=== PATIENT | female | born 1965 | race Caucasian/White ===

== ENCOUNTER 2024-04-10 08:13 | Observation (INO) | payer OTHER ==
--- NOTE | 2024-04-10 08:42 | ED ---
General Adult HPI - General Chief complaint: Abdominal Pain Stated complaint: Abd pain Time Seen by Provider: 04/10/24 08:32 Source: patient, RN notes reviewed Mode of arrival: ambulatory Limitations: no limitations - History of Present Illness Initial comments: Patient is a 58-year-old female present to the emergency department with left- sided flank pain. Symptoms have been present for months now. Symptoms were more intermittent however more persistent now. Patient has had some nausea vomiting, constipation and diarrhea all intermittently. No fevers. No history of similar symptoms previously. Patient has tried a friend's Flagyl prescription without improvement of symptoms. - Related Data Home Medications Medication Instructions Recorded Confirmed Levothyroxine Sodium [Synthroid] 112 mcg PO DAILY 04/10/24 04/10/24 lisinopriL [Zestril] 5 mg PO DAILY 04/10/24 04/10/24 Allergies Allergy/AdvReac Type Severity Reaction Status Date / Time No Known Allergies Allergy Verified 04/10/24 08:26 Review of Systems ROS Statement: Those systems with pertinent positive or pertinent negative responses have been documented in the HPI. ROS Other: All systems not noted in ROS Statement are negative. Constitutional: Denies: fever Eyes: Denies: eye pain ENT: Denies: ear pain Respiratory: Denies: cough Cardiovascular: Denies: chest pain Endocrine: Denies: fatigue Gastrointestinal: Reports: as per HPI, abdominal pain, nausea, vomiting, diarrhea, constipation Musculoskeletal: Denies: back pain Skin: Denies: rash Neurological: Denies: weakness Past Medical History Past Medical History: Hypertension, Thyroid Disorder Additional Past Medical History / Comment(s): kidney stones History of Any Multi-Drug Resistant Organisms: None Reported Additional Past Surgical History / Comment(s): lipoma removal Past Psychological History: No Psychological Hx Reported Smoking Status: Current every day smoker Past Alcohol Use History: Rare Past Drug Use History: Marijuana General Exam Limitations: no limitations General appearance: alert, in no apparent distress Head exam: Present: normocephalic Eye exam: Present: normal appearance Neck exam: Present: normal inspection Respiratory exam: Present: normal lung sounds bilaterally Cardiovascular Exam: Present: regular rate, normal rhythm Expanded Peripheral pulses: 2+: Posterior Tibialis (R), Posterior Tibialis (L), Dorsalis Pedis (R), Dorsalis Pedis (L) GI/Abdominal exam: Present: soft, tenderness (Mild tenderness to palpation left flank), normal bowel sounds. Absent: distended, guarding, rebound, rigid, pulsatile mass Extremities exam: Present: calf tenderness (Mild on the right, distally extremities are neurovascular intact) Back exam: Present: normal inspection Neurological exam: Present: alert Psychiatric exam: Present: normal affect, normal mood Skin exam: Present: normal color Course Vital Signs 04/10/24 04/10/24 04/10/24 08:22 08:39 09:03 Temperature 97.9 F Pulse Rate 87 90 94 Respiratory 16 18 18 Rate Blood Pressure 212/114 194/102 177/92 O2 Sat by Pulse 96 96 98 Oximetry 04/10/24 04/10/24 04/10/24 10:08 10:49 12:44 Temperature Pulse Rate 84 98 67 Respiratory 18 18 18 Rate Blood Pressure 157/94 170/87 169/97 O2 Sat by Pulse 96 96 98 Oximetry Medical Decision Making - Medical Decision Making Was pt. sent in by a medical professional or institution (, PA, SILO ERECTOR, urgent care, hospital, or retirement...) When possible be specific @ -No Did you speak to anyone other than the patient for history (EMS, parent, family, police, friend...)? What history was obtained from this source @ -No Did you review nursing and triage notes (agree or disagree)? Why? @ -I reviewed and agree with nursing and triage notes Were old charts reviewed (outside hosp., previous admission, EMS record, old EKG, old radiological studies, urgent care reports/EKG's, retirement records)? Report findings @ -No old charts were reviewed Differential Diagnosis (chest pain, altered mental status, abdominal pain women, abdominal pain men, vaginal bleeding, weakness, fever, dyspnea, syncope, headache, dizziness, GI bleed, back pain, seizure, CVA, palpatations, mental health, musculoskeletal)? @ -Differential Abdominal Pain Women: Appendicitis, Cholecystitis, diverticulosis, ischemic bowel, pancreatitis, hepatitis, UTI, gastroenteritis, AAA, incarcerated hernia, bowel obstruction, constipation, inflammatory bowel, hepatitis, peptic ulcer disease, splenic infarction, perforated viscus, vulvitis, ovarian torsion, PID, kidney stone, placenta abruption, this is not meant to be an all-inclusive list EKG interpreted by me (3pts min.). @ -As above X-rays interpreted by me (1pt min.). @ -None done CT interpreted by me (1pt min.). @ -CT scan of abdomen pelvis without acute abnormality U/S interpreted by me (1pt. min.). @ -Ultrasound without evidence of DVT What testing was considered but not performed or refused? (CT, X-rays, U/S, labs)? Why? @ -None What meds were considered but not given or refused? Why? @ -None Did you discuss the management of the patient with other professionals (professionals i.e. , PA, SILO ERECTOR, lab, RT, psych nurse, social services technician, club car attendant, teacher, health promotion officer, showcase maker)? Give summary @ -Case was discussed with Dr. Cartagena who will admit covering hospital call Was smoking cessation discussed for >3mins.? @ -No Was critical care preformed (if so, how long)? @ -No Were there social determinants of health that impacted care today? How? (Homelessness, low income, unemployed, alcoholism, drug addiction, trans portation, low edu. Level, literacy, decrease access to med. care, fpc, rehab)? @ -No Was there de-escalation of care discussed even if they declined (Discuss DNR or withdrawal of care, Hospice)? DNR status @ -No What co-morbidities impacted this encounter? (DM, HTN, Smoking, COPD, CAD, Cancer, CVA, ARF, Chemo, Hep., AIDS, mental health diagnosis, sleep apnea, morbid obesity)? @ -None Was patient admitted / discharged? Hospital course, mention meds given and route, prescriptions, significant lab abnormalities, going to OR and other pertinent info. @ -Patient presents with progressive abdominal discomfort over several months, now becoming more severe. Workup unremarkable. Patient still having significant symptoms. Patient will be admitted, admission orders written. Undiagnosed new problem with uncertain prognosis? @ -No Drug Therapy requiring intensive monitoring for toxicity (Heparin, Nitro, Insulin, Cardizem)? @ -No Were any procedures done? @ -No Diagnosis/symptom? @ -Abdominal pain Acute, or Chronic, or Acute on Chronic? @ -Acute Uncomplicated (without systemic symptoms) or Complicated (systemic symptoms)? @ -Default Side effects of treatment? @ -No Exacerbation, Progression, or Severe Exacerbation? @ -No Poses a threat to life or bodily function? How? (Chest pain, USA, CA, pneumonia, PE, COPD, DKA, ARF, appy, cholecystitis, CVA, Diverticulitis, Homicidal, Duffy icidal, threat to staff... and all critical care pts) @ -No - Lab Data Result diagrams: 04/10/24 08:45 04/10/24 08:45 Lab Results 04/10/24 04/10/24 04/10/24 Range/Units 08:45 08:45 08:45 WBC 6.5 (3.8-10.6) k/uL RBC 4.25 (3.80-5.40) m/uL Hgb 12.6 (11.4-16.0) gm/dL Hct 38.2 (34.0-46.0) % MCV 89.9 (80.0-100.0) fL MCH 29.7 (25.0-35.0) pg MCHC 33.0 (31.0-37.0) g/dL RDW 14.5 (11.5-15.5) % Plt Count 360 (150-450) k/uL MPV 9.1 Neutrophils % 63 % Lymphocytes % 27 % Monocytes % 6 % Eosinophils % 2 % Basophils % 1 % Neutrophils # 4.1 (1.3-7.7) k/uL Lymphocytes # 1.7 (1.0-4.8) k/uL Monocytes # 0.4 (0-1.0) k/uL Eosinophils # 0.1 (0-0.7) k/uL Basophils # 0.1 (0-0.2) k/uL PT 10.4 (10.0-12.5) sec INR 0.9 (<1.2) APTT 24.2 (22.0-30.0) sec Sodium (137-145) mmol/L Potassium (3.5-5.1) mmol/L Chloride (98-107) mmol/L Carbon Dioxide (22-30) mmol/L Anion Gap mmol/L BUN (7-17) mg/dL Creatinine (0.52-1.04) mg/dL Est GFR (CKD-EPI)AfAm (>60 ml/min/1.73 sqM) Est GFR (CKD-EPI)NonAf (>60 ml/min/1.73 sqM) Glucose (74-99) mg/dL Calcium (8.4-10.2) mg/dL Total Bilirubin (0.2-1.3) mg/dL AST (14-36) U/L ALT (4-34) U/L Alkaline Phosphatase (38-126) U/L Total Protein (6.3-8.2) g/dL Albumin (3.5-5.0) g/dL Amylase (30-110) U/L Lipase (23-300) U/L Urine Color Colorless Urine Appearance Clear (Clear) Urine pH 6.0 (5.0-8.0) Ur Specific Mos[place] 1.002 (1.001-1.035) Urine Protein Negative (Negative) Urine Glucose (UA) Negative (Negative) Urine Ketones Negative (Negative) Urine Blood Negative (Negative) Urine Nitrite Negative (Negative) Urine Bilirubin Negative (Negative) Urine Urobilinogen <2.0 (<2.0) mg/dL Ur Leukocyte Esterase Negative (Negative) 04/10/24 Range/Units 08:45 WBC (3.8-10.6) k/uL RBC (3.80-5.40) m/uL Hgb (11.4-16.0) gm/dL Hct (34.0-46.0) % MCV (80.0-100.0) fL MCH (25.0-35.0) pg MCHC (31.0-37.0) g/dL RDW (11.5-15.5) % Plt Count (150-450) k/uL MPV Neutrophils % % Lymphocytes % % Monocytes % % Eosinophils % % Basophils % % Neutrophils # (1.3-7.7) k/uL Lymphocytes # (1.0-4.8) k/uL Monocytes # (0-1.0) k/uL Eosinophils # (0-0.7) k/uL Basophils # (0-0.2) k/uL PT (10.0-12.5) sec INR (<1.2) APTT (22.0-30.0) sec Sodium 140 (137-145) mmol/L Potassium 4.1 (3.5-5.1) mmol/L Chloride 112 H (98-107) mmol/L Carbon Dioxide 19 L (22-30) mmol/L Anion Gap 9 mmol/L BUN 11 (7-17) mg/dL Creatinine 0.81 (0.52-1.04) mg/dL Est GFR (CKD-EPI)AfAm >90 (>60 ml/min/1.73 sqM) Est GFR (CKD-EPI)NonAf 82 (>60 ml/min/1.73 sqM) Glucose 117 H (74-99) mg/dL Calcium 9.8 (8.4-10.2) mg/dL Total Bilirubin 0.8 (0.2-1.3) mg/dL AST 20 (14-36) U/L ALT 11 (4-34) U/L Alkaline Phosphatase 68 (38-126) U/L Total Protein 7.1 (6.3-8.2) g/dL Albumin 4.5 (3.5-5.0) g/dL Amylase 66 (30-110) U/L Lipase 158 (23-300) U/L Urine Color Urine Appearance (Clear) Urine pH (5.0-8.0) Ur Specific [place] (1.001-1.035) Urine Protein (Negative) Urine Glucose (UA) (Negative) Urine Ketones (Negative) Urine Blood (Negative) Urine Nitrite (Negative) Urine Bilirubin (Negative) Urine Urobilinogen (<2.0) mg/dL Ur Leukocyte Esterase (Negative) Disposition Clinical Impression: Abdominal pain Disposition: ADMITTED IP TO THIS HOSP Is patient prescribed a controlled substance at d/c from ED?: No Referrals: None,Stated [Primary Care Provider] - 1-2 days Time of Disposition: 13:13
[2024-04-10] MEDS: SODIUM CHLORIDE 0.9% 1,000 ML IV STA (08:52)
[2024-04-10] MEDS: ONDANSETRON 4 MG/2 ML VIAL IVP STA ×2 (08:53→10:09)
[2024-04-10 08:55] LABS: Basophils # (A) 0.1 k/uL (0-0.2); Basophils % (A) 1 %; Eosinophils # (A) 0.1 k/uL (0-0.7); Eosinophils % (A) 2 %; HCT 38.2 % (34.0-46.0); HGB 12.6 gm/dL (11.4-16.0); Lymphocytes # (A) 1.7 k/uL (1.0-4.8); Lymphocytes % (A) 27 %; MCH 29.7 pg (25.0-35.0); MCV 89.9 fL (80.0-100.0); Mean Platelet Volume 9.1; Monocytes # (A) 0.4 k/uL (0-1.0); Monocytes % (A) 6 %; Neutrophils # (A) 4.1 k/uL (1.3-7.7); Neutrophils % (A) 63 %; Platelet Count 360 k/uL (150-450); RBC 4.25 m/uL (3.80-5.40); RDW 14.5 % (11.5-15.5); WBC 6.5 k/uL (3.8-10.6)
[2024-04-10] MEDS: FAMOTIDINE 20 MG/2 ML VIAL IV STA (08:55)
[2024-04-10] MEDS: HYDROmorphone 1 MG/ML 1 ML SYRINGE IVP STA ×2 (09:00→12:46)
[2024-04-10 09:03] LABS: ALT 11 U/L (4-34); AST 20 U/L (14-36); African American GFR (CKD) >90 (>60 ml/min/1.73 sqM); Albumin 4.5 g/dL (3.5-5.0); Alkaline Phosphatase 68 U/L (38-126); Amylase 66 U/L (30-110); Anion Gap 9 mmol/L; Blood Urea Nitrogen 11 mg/dL (7-17); Calcium 9.8 mg/dL (8.4-10.2); Carbon Dioxide 19 mmol/L (22-30); Chloride 112 mmol/L (98-107); Glucose 117 mg/dL (74-99); INR 0.9 (<1.2); Lipase 158 U/L (23-300); Non-African American GFR(CKD) 82 (>60 ml/min/1.73 sqM); Partial Thromboplastin Time 24.2 sec (22.0-30.0); Potassium 4.1 mmol/L (3.5-5.1); Prothrombin Time 10.4 sec (10.0-12.5); Sodium 140 mmol/L (137-145); Total Bilirubin 0.8 mg/dL (0.2-1.3); Total Protein 7.1 g/dL (6.3-8.2)
[2024-04-10] MEDS: ENALAPRILAT 1.25 MG/ML 1 ML VIAL IVP STA (09:03)
[2024-04-10 09:18] LABS: Appearance,Urine Clear (Clear); Bilirubin,Urine Negative (Negative); Blood,Urine Negative (Negative); Color,Urine Colorless; Glucose,Urine (UA) Negative (Negative); Ketones,Urine Negative (Negative); Leukocyte Esterase,Urine Negative (Negative); Nitrite,Urine Negative (Negative); Protein,Urine Negative (Negative); Specific Gravity,Urine 1.002 (1.001-1.035); Urobilinogen,Urine <2.0 mg/dL (<2.0)
--- NOTE | 2024-04-10 09:48 | CT ---
EXAMINATION TYPE: CT abdomen pelvis w con CT DLP: 631.3 mGycm, Automated exposure control for dose reduction was used. DATE OF EXAM: 04/10/2024 9:25 AM COMPARISON: None. CLINICAL INDICATION: Female, 58 years old with history of abdominal pain; left flank pain x 6 months TECHNIQUE: Axial CT abdomen pelvis w con;Sagittal and coronal reformats were created on a separate w orkstation. Contrast used:100ml mL of Isovue 300 with IV Contrast, (none if empty) Oral contrast used: without Oral Contrast (none if empty) FINDINGS: LOWER CHEST: Unremarkable ABDOMEN LIVER: Unremarkable GALLBLADDER AND BILE DUCTS: Unremarkable. PANCREAS: Unremarkable. SPLEEN: Unremarkable. ADRENAL GLANDS: Unremarkable. KIDNEYS AND URETERS: No evidence of hydronephrosis or renal calculus. The ureters are unremarkable. PELVIS BLADDER: Unremarkable REPRODUCTIVE: Unremarkable. ABDOMEN & PELVIS STOMACH AND BOWEL: No evidence of bowel obstruction. PERITONEUM/RETROPERITONEUM: No evidence of pneumoperitoneum or free fluid. VASCULATURE: No evidence of aortic aneurysm. MUSCULOSKELETAL: No acute osseous abnormalities LYMPH NODES: No gross evidence for lymphadenopathy. SOFT TISSUE/ABDOMINAL WALL: Fat-containing umbilical hernia. IMPRESSION: No evidence for acute abdominal process.
[2024-04-10] MEDS: DICYCLOMINE 10 MG/ML 2 ML AMP IM STA (10:47)
--- NOTE | 2024-04-10 11:46 | US ---
EXAMINATION TYPE: US venous doppler duplex LE RT DATE OF EXAM: 04/10/2024 10:31 AM COMPARISON: NONE CLINICAL INDICATION: Female, 58 years old with history of pain; Right leg pain SIDE PERFORMED: Right TECHNIQUE: The lower extremity deep venous system is examined utilizing real time linear array sonog irma with graded compression, doppler sonography and color-flow sonography. VESSELS IMAGED: Common Femoral Vein Deep Femoral Vein Greater Saphenous Vein * Femoral Vein Popliteal Vein Small Saphenous Vein * Proximal Calf Veins (* superficial vessels) Right Leg: Negative for DVT IMPRESSION: No evidence for DVT within the right lower extremity imaged from the groin to the upper calf.
[2024-04-10] MEDS ORDERED: NALOXONE 0.4 MG/ML 1 ML VIAL IV PRN (13:14)
[2024-04-10] MEDS ORDERED: HYDROmorphone 0.5 MG/0.5 ML SYRINGE IVP PRN (13:14)
[2024-04-10] MEDS ORDERED: HYDROmorphone 1 MG/ML 1 ML SYRINGE IVP PRN (13:14)
[2024-04-10] MEDS: SODIUM CHLORIDE 0.9% 1,000 ML IV SCH (13:20)
[2024-04-10] MEDS: TRIMETHOBENZAMIDE 100 MG/ML 2 ML VIAL IM STA (15:03)
[2024-04-10 15:38] LABS: Amphetamine Screen,Urine Not Detected (NotDetected); Barbiturate Screen,Urine Not Detected (NotDetected); Benzodiazepines Screen,Urine Not Detected (NotDetected); Cocaine Screen,Urine Not Detected (NotDetected); Methadone Screen, Urine Not Detected (NotDetected); Opiate Screen,Urine Not Detected (NotDetected); Oxycodone Screen, Urine Not Detected (NotDetected); Phencyclidine Screen,Urine Not Detected (NotDetected); Tricyclic Antidepressant,Urine Not Detected (NotDetected); Urn Cannabinoid Scrn Detected (NotDetected)
[2024-04-10] MEDS: PROCHLORPERAZINE INJ 10 MG/2 ML VIAL IVP PRN (16:28)
--- NOTE | 2024-04-10 16:54 | P.HPIM ---
History of Present Illness H&P Date: 04/10/24 History of Presenting Illness: Patient is a 58-year-old female with a past medical history of hypertension, hypothyroidism, and nicotine dependence. She presented to the emergency department with a chief complaint of intractable abdominal pain, nausea, and vomiting. Patient reports pain to left flank accompanied by intractable nausea and vomiting. Patient reports this has been intermittent over the past 3 months but has now become persistent over the past 24 hours. She denies having any fevers, chills, headache, lightheadedness, dizziness, chest pain, palpitations, shortness of breath, hematemesis, melena, or hematochezia. She reports normal urinary function and normally fluctuates between diarrhea and constipation at baseline. She underwent evaluation in the emergency department. Vital signs upon arrival show blood pressure 212/114, heart rate 87, respiratory rate 16, temp 97.9 F, and SpO2 of 96% on room air. Labs were completed and reviewed. CBC was unremarkable with WBC count of 6.5, hemoglobin 12.6, and platelet count of 360,000. Coagulation profile normal findings. BMP showing non-anion gap metabolic acidosis with chloride of 112, bicarb of 19, and anion gap of 9. Renal function unremarkable with BUN of 11, creatinine 0.81, GFR of 82. Blood glucose 117. Liver profile unremarkable. Amylase 66 and lipase 158. Urinal ysis negative for infection. CT abdomen and pelvis was completed negative for acute intra-abdominal process. Right lower extremity venous Doppler also completed secondary to patient's reports of right leg pain/cramping and was negative for DVT. Patient was admitted under our services for intractable abdominal pain, nausea, and vomiting. Consult was placed to general surgery for evaluation by ED physician. Review of systems: Pertinent positives and negatives as discussed in HPI, a complete review of systems was performed and all other systems are negative. Physical exam: Vital signs reviewed and stable. General: Nontoxic, patient appears mildly distressed at time of exam. She was diaphoretic and dry heaving into emesis basin. Patient very fidgety, unable to sit still. Derm: Skin warm and dry, normal coloration for ethnicity. Head: Atraumatic, normocephalic and symmetric. Eyes: EOM's intact, no lid lag, and anicteric sclera Mouth: no lip lesions, mucus membranes moist Cardiovascular: regular rate and rhythm with normal S1S2, no murmur, positive posterior tibial pulses bilaterally, and cap refill < 2 seconds. Lungs: Respirations even, regular, and unlabored on room air. Lungs CTA tamanna aterally, no rhonchi, no rales, no wheezing, and no accessory muscle usage. Abdominal: soft, nontender to palpation, no guarding, no appreciable organomegaly. Reports left-sided flank/abdominal pain but did not appear to be worsened with palpation. No CVA tenderness reported. Ext: ROM intact. No gross muscle atrophy, no edema, no contractures Neuro: Speech clear, face symmetrical and CN II-XII grossly intact with no noted focal neuro deficits Psych: Alert and oriented to person, place, time, and situation. Appropriate and pleasant affect. Assessment and Plan of Care: Cyclic nausea and vomiting. Suspected cannabinoid hyperemesis syndrome Intractable abdominal pain Non-anion gap metabolic acidosis Continue with gentle IV fluid hydration with 0.9% normal saline at 75 cc/h. Symptomatic care and pain management. 0.5 mg Dilaudid every 3 hours as needed for moderate pain and 1 mg every 3 hours as needed for severe pain. Zofran ineffective at controlling nausea and vomiting. Orders placed for Tigan and Compazine. Continue GI prophylaxis with Protonix 40 mg IVP daily. Repeat morning CBC, CMP, and magnesium. Monitor electrolytes closely with cyclic vomiting. Suspect cannabinoid hyperemesis syndrome, recommend patient to stop use of cannabis products. General Surgery was consulted by ED physician, appreciate recommendations. Hypertensive urgency upon arrival Patient received dose of Vasotec in the emergency department. Will resume home medication regimen with lisinopril 5 mg daily and hold off on additional antihypertensive medications pending control of cyclic vomiting. Suspect elevated pressures secondary to continuous vomiting/dry heaving. Administer a one-time dose of Valium 5 mg IVP and attempts to control nausea/vomiting and improve pressures. Hypothyroidism Continue levothyroxine 112 mcg daily. Data and imaging reviewed: As stated above in HPI. CODE STATUS: Full code DVT prophylaxis: Lovenox Anticipated discharge date: Pending clinical course Anticipated discharge place: Home Patient was seen independently by Nurse Practitioner. This document was prepared using [employer] dictation software. Please allow for errors in bag cutter while rare they do occur. .Jamey Feliciano NP rendered care for this patient independently, reviewed the findings and plan as documented in the note above. I did not physically speak with or examine the patient on this date. Past Medical History Past Medical History: Hypertension, Thyroid Disorder Additional Past Medical History / Comment(s): kidney stones History of Any Multi-Drug Resistant Organisms: None Reported Additional Past Surgical History / Comment(s): lipoma removal Past Psychological History: No Psychological Hx Reported Smoking Status: Current every day smoker Past Alcohol Use History: Rare Past Drug Use History: Marijuana Medications and Allergies Home Medications Medication Instructions Recorded Confirmed Type Levothyroxine Sodium [Synthroid] 112 mcg PO DAILY 04/10/24 04/10/24 History lisinopriL [Zestril] 5 mg PO DAILY 04/10/24 04/10/24 History Allergies Allergy/AdvReac Type Severity Reaction Status Date / Time No Known Allergies Allergy Verified 04/10/24 08:26 Physical Exam Vitals: Vital Signs Temp Pulse Resp BP Pulse Ox 04/10/24 12:44 67 18 169/97 98 04/10/24 10:49 98 18 170/87 96 04/10/24 10:08 84 18 157/94 96 04/10/24 09:03 94 18 177/92 98 04/10/24 08:39 90 18 194/102 96 04/10/24 08:22 97.9 F 87 16 212/114 96 Intake and Output 04/09/24 04/10/24 04/10/24 22:59 06:59 14:59 Other: Weight 68.039 kg Results CBC & Chem 7: 04/11/24 04:34 04/11/24 04:34 Labs: Abnormal Lab Results - Last 24 Hours (Table) 04/10/24 Range/Units 08:45 Chloride 112 H (98-107) mmol/L Carbon Dioxide 19 L (22-30) mmol/L Glucose 117 H (74-99) mg/dL
[2024-04-10] MEDS: ONDANSETRON 4 MG/2 ML VIAL IVP PRN (18:40)
[2024-04-11] MEDS: LEVOTHYROXINE 112 MCG TAB PO SCH (05:58)
[2024-04-11] MEDS: NICOTINE 21MG/24HR PATCH TRANSDERM SCH (07:31)
[2024-04-11] MEDS: PANTOPRAZOLE 40 MG/10 ML VIAL IV SCH (08:36)
[2024-04-11] MEDS: ENOXAPARIN 40 MG/0.4 ML SYRINGE SQ SCH (08:37)
[2024-04-11] MEDS: lisinopriL 5 MG TAB PO SCH (08:37)
[2024-04-11 09:07] LABS: Basophils # (A) 0.06 X 10*3/uL (0.00-0.10); Basophils % (A) 0.8 %; Eosinophils # (A) 0.09 X 10*3/uL (0.04-0.35); Eosinophils % (A) 1.2 %; HCT 34.1 % (37.2-46.3); Lymphocytes # (A) 2.05 X 10*3/uL (0.90-5.00); Lymphocytes % (A) 27.4 %; MCH 28.9 pg (27.0-32.0); MCHC 32.3 g/dL (32.0-37.0); MCV 89.7 FL (80.0-97.0); Mean Platelet Volume 12.3 FL (9.5-12.2); Monocytes # (A) 0.81 X 10*3/uL (0.20-1.00); Monocytes % (A) 10.8 %; NRBC Per 100 WBC 0 X 10*3/uL (0.00-0.01); Neutrophils # (A) 4.46 X 10*3/uL (1.80-7.70); Neutrophils % (A) 59.5 %; Platelet Count 350 X 10*3/uL (140-440); RDW 14.1 % (11.5-14.5); WBC 7.49 X 10*3/uL (4.50-10.00)
[2024-04-11 09:17] LABS: ALT 8 U/L (8-44); AST 12 U/L (13-35); Alkaline Phosphatase 61 U/L (41-126); BUN/Creat Ratio 9.12 Ratio (12.00-20.00); Blood Urea Nitrogen 7.3 mg/dL (9.0-27.0); Carbon Dioxide 20.5 mmol/L (21.6-31.8); Chloride 107 mmol/L (96-109); Glucose 93 mg/dL (70-110); Sodium 139 mmol/L (135-145); Total Bilirubin 0.5 mg/dL (0.3-1.2)
--- NOTE | 2024-04-11 09:39 | P.PN ---
Subjective Progress Note Date: 04/11/24 Hospital course: Patient is a 58-year-old female with a past medical history of hypertension, hypothyroidism, and nicotine dependence. She presented to the emergency department with a chief complaint of intractable abdominal pain, nausea, and vomiting. Patient reports pain to left flank accompanied by intractable nausea and vomiting. Patient reports this has been intermittent over the past 3 months but has now become persistent over the past 24 hours. She denies having any fevers, chills, headache, lightheadedness, dizziness, chest pain, palpitations, shortness of breath, hematemesis, melena, or hematochezia. She reports normal urinary function and normally fluctuates between diarrhea and constipation at baseline. She underwent evaluation in the emergency department. Vital signs upon arrival show blood pressure 212/114, heart rate 87, respiratory rate 16, temp 97.9 F, and SpO2 of 96% on room air. Labs were completed and reviewed. CBC was unremarkable with WBC count of 6.5, hemoglobin 12.6, and platelet count of 360,000. Coagulation profile normal findings. BMP showing non-anion gap metabolic acidosis with chloride of 112, bicarb of 19, and anion gap of 9. Renal function unremarkable with BUN of 11, creatinine 0.81, GFR of 82. Blood glucose 117. Liver profile unremarkable. Amylase 66 and lipase 158. Urinalysis negative for infection. CT abdomen and pelvis was completed negative for acute intra-abdominal process. Right lower extremity venous Doppler also completed secondary to patient's reports of right leg pain/cramping and was negative for DVT. Patient was admitted under our services for intractable abdominal pain, nausea, and vomiting. Consult was placed to general surgery for evaluation by ED physician. Physical exam: Patient seen and evaluated at bedside. She reports continued pain left flank and nausea but states vomiting and dry heaving has improved. Patient denies any other complaints or needs at this time. Vital signs reviewed and stable. General: Nontoxic, no acute distress noted at this time. Derm: Skin warm and dry, normal coloration for ethnicity. Head: Atraumatic, normocephalic and symmetric. Eyes: EOM's intact, no lid lag, and anicteric sclera Mouth: no lip lesions, mucus membranes moist Cardiovascular: regular rate and rhythm with normal S1S2, no murmur, positive posterior tibial pulses bilaterally, and cap refill < 2 seconds. Lungs: Respirations even, regular, and unlabored on room air. Lungs CTA bilaterally, no rhonchi, no rales, no wheezing, and no accessory muscle usage. Abdominal: soft, nontender to palpation, no guarding, no appreciable organomegaly. Reports left-sided flank/abdominal pain but did not appear to be worsened with palpation. No CVA tenderness reported. Ext: ROM intact. No gross muscle atrophy, no edema, no contractures Neuro: Speech clear, face symmetrical and CN II-XII grossly intact with no noted focal neuro deficits Psych: Alert and oriented to person, place, time, and situation. Appropriate and pleasant affect. Assessment and Plan of Care: Cyclic nausea and vomiting. Suspected cannabinoid hyperemesis syndrome Intractable abdominal pain Non-anion gap metabolic acidosis Continue with gentle IV fluid hydration with 0.9% normal saline at 75 cc/h. Symptomatic care and pain management. 0.5 mg Dilaudid every 3 hours as needed for moderate pain and 1 mg every 3 hours as needed for severe pain. Zofran ineffective at controlling nausea and vomiting. Orders placed for Tigan and Compazine. Continue GI prophylaxis with Protonix 40 mg IVP daily. Repeat morning CBC, CMP, and magnesium. Monitor electrolytes closely with cyclic vomiting. Suspect cannabinoid hyperemesis syndrome, recommend patient to stop use of cannabis products. General Surgery evaluated stating that they we will be placing order for HIDA scan. Hypertensive urgency upon arrival Blood pressure 212/114 upon arrival, patient received dose of Vasotec in the emergency department only resulting in minimal improvement of hypertension. Once nausea/vomiting controlled blood pressures much improved. Currently 136/78. Continue lisinopril 5 mg daily. Hypothyroidism Continue levothyroxine 112 mcg daily. Data and imaging reviewed: Vital signs reviewed. Blood pressure 136/78, heart rate 74, respiratory rate 16, temp 98.5 F, and SpO2 of 98% on room air. Morning labs reviewed. CBC showing mild normocytic anemia with hemoglobin of 11.0. BMP revealing mild metabolic acidosis with chloride 107, bicarb 20.5, and anion gap of 11.50. CODE STATUS: Full code DVT prophylaxis: Lovenox Anticipated discharge date: Pending clinical course Anticipated discharge place: Home Patient was seen independently by Nurse Practitioner. This document was prepared using [employer]ist dictation software. Please allow for errors in information systems analyst while rare they do occur. . Jamey Braden, ACCOUNTING CLERK rendered care for this patient independently, reviewed the findings and plan as documented in the note above. I did not physically speak with or examine the patient on this date. Objective - Vital Signs Vital signs: Vital Signs Temp 98.5 F 04/11/24 02:00 Pulse 74 04/11/24 02:00 Resp 16 04/11/24 02:00 BP 136/78 04/11/24 02:00 Pulse Ox 98 04/11/24 02:00 FiO2 Intake & Output 04/10/24 04/11/24 04/11/24 18:59 06:59 18:59 Intake Total 540 Balance 540 Weight 68.039 kg Intake: Oral 540 Other: # Voids 1 1 - Labs CBC & Chem 7: 04/11/24 04:34 04/11/24 04:34 Labs: Abnormal Lab Results - Last 24 Hours (Table) 04/10/24 04/10/24 Range/Units 08:45 08:45 Chloride 112 H (98-107) mmol/L Carbon Dioxide 19 L (22-30) mmol/L Glucose 117 H (74-99) mg/dL U Marijuana (THC) Screen Detected H (NotDetected)
--- NOTE | 2024-04-11 11:17 | P.GSCN ---
History of Present Illness Consult date: 04/11/24 History of present illness: CHIEF COMPLAINT: Abdominal pain HISTORY OF PRESENT ILLNESS: This is a 58-year-old female who presented with left sided flank pain that has been ongoing since September. She reports having decreased appetite. She admits to nausea and vomiting intermittently. Denies any prior abdominal surgical history. CT scan abdomen and pelvis was unre markable. Patient reports relief in the pain when she places pressure on it. Pain is worse after eating. Patient seen and examined with Dr. Pichardo PAST MEDICAL HISTORY: Hypertension, thyroid disorder, kidney stones PAST SURGICAL HISTORY: Lipoma removal MEDICATIONS: See below ALLERGIES: See below SOCIAL HISTORY: No illicit drug use. Marijuana use REVIEW OF SYSTEMS: CONSTITUTIONAL: Denies fever or chills. HEENT: Denies blurred vision, vision changes, or eye pain. Denies hemoptysis CARDIOVASCULAR: Denies chest pain or pressure. RESPIRATORY: No shortness of breath. GASTROINTESTINAL: See HPI for pertinent findings HEMATOLOGIC: Denies bleeding disorders. GENITOURINARY: Denies any blood in urine or increased urinary frequency. SKIN: Denies pruitis. Denies rash. PHYSICAL EXAM: VITAL SIGNS: Reviewed GENERAL: Well-developed in no acute distress. ABDOMEN: Soft. Nondistended. Tenderness left flank NEUROLOGIC: Alert and oriented. Cranial nerves II through XII grossly intact. LABORATORY DATA: WBC 7.49 Hgb 11 platelets 350 Sodium 139 potassium 4.0 creatinine 0.8 Lipase 158 Urinalysis negative Drug screen positive for marijuana IMAGING: CT scan of the pelvis no evidence of acute abdominal process ASSESSMENT: 1. Abdominal pain 2. Nausea and vomiting 3. Cannabinoid use PLAN: -HIDA scan with EF ordered for further evaluation of abdominal pain and to rule out gallbladder dysfunction -Continue to monitor Physician Engineering Technician Parking note has been reviewed by physician. Signing provider agrees with the documented findings, assessment, and plan of care. Past Medical History Past Medical History: Hypertension, Thyroid Disorder Additional Past Medical History / Comment(s): kidney stones History of Any Multi-Drug Resistant Organisms: None Reported Additional Past Surgical History / Comment(s): lipoma removal Past Psychological History: No Psychological Hx Reported Smoking Status: Current every day smoker Past Alcohol Use History: Rare Past Drug Use History: Marijuana Medications and Allergies Home Medications Medication Instructions Recorded Confirmed Type Levothyroxine Sodium [Synthroid] 112 mcg PO DAILY 04/10/24 04/10/24 History lisinopriL [Zestril] 5 mg PO DAILY 04/10/24 04/10/24 History Allergies Allergy/AdvReac Type Severity Reaction Status Date / Time No Known Allergies Allergy Verified 04/10/24 08:26 Surgical - Exam Vital Signs Temp Pulse Resp BP Pulse Ox 97.9 F 87 16 212/114 96 04/10/24 08:22 04/10/24 08:22 04/10/24 08:22 04/10/24 08:22 04/10/24 08:22 Results - Labs 04/11/24 04:34 04/11/24 04:34 Abnormal Lab Results - Last 24 Hours (Table) 04/10/24 04/11/24 04/11/24 Range/Units 08:45 04:34 04:34 RBC 3.80 L (4.10-5.20) X 10*6/uL Hgb 11.0 L (12.0-15.0) g/dL Hct 34.1 L (37.2-46.3) % MPV 12.3 H (9.5-12.2) FL Carbon Dioxide 20.5 L (21.6-31.8) mmol/L BUN 7.3 L (9.0-27.0) mg/dL BUN/Creatinine Ratio 9.12 L (12.00-20.00) Ratio AST 12 L (13-35) U/L Total Protein 6.0 L (6.2-8.2) g/dL U Marijuana (THC) Screen Detected H (NotDetected) Diabetes panel 04/11/24 Range/Units 04:34 Sodium 139 (135-145) mmol/L Potassium 4.0 (3.5-5.5) mmol/L Chloride 107 (96-109) mmol/L Carbon Dioxide 20.5 L (21.6-31.8) mmol/L BUN 7.3 L (9.0-27.0) mg/dL Creatinine 0.8 (0.6-1.5) mg/dL Glucose 93 (70-110) mg/dL Calcium 9.0 (8.7-10.3) mg/dL AST 12 L (13-35) U/L ALT 8 (8-44) U/L Alkaline Phosphatase 61 (41-126) U/L Total Protein 6.0 L (6.2-8.2) g/dL Albumin 4.0 (3.8-4.9) g/dL Calcium panel 04/11/24 Range/Units 04:34 Calcium 9.0 (8.7-10.3) mg/dL Albumin 4.0 (3.8-4.9) g/dL Pituitary panel 04/11/24 Range/Units 04:34 Sodium 139 (135-145) mmol/L Potassium 4.0 (3.5-5.5) mmol/L Chloride 107 (96-109) mmol/L Carbon Dioxide 20.5 L (21.6-31.8) mmol/L BUN 7.3 L (9.0-27.0) mg/dL Creatinine 0.8 (0.6-1.5) mg/dL Glucose 93 (70-110) mg/dL Calcium 9.0 (8.7-10.3) mg/dL Adrenal panel 04/11/24 Range/Units 04:34 Sodium 139 (135-145) mmol/L Potassium 4.0 (3.5-5.5) mmol/L Chloride 107 (96-109) mmol/L Carbon Dioxide 20.5 L (21.6-31.8) mmol/L BUN 7.3 L (9.0-27.0) mg/dL Creatinine 0.8 (0.6-1.5) mg/dL Glucose 93 (70-110) mg/dL Calcium 9.0 (8.7-10.3) mg/dL Total Bilirubin 0.5 (0.3-1.2) mg/dL AST 12 L (13-35) U/L ALT 8 (8-44) U/L Alkaline Phosphatase 61 (41-126) U/L Total Protein 6.0 L (6.2-8.2) g/dL Albumin 4.0 (3.8-4.9) g/dL
[2024-04-11] MEDS: ONDANSETRON 4 MG/2 ML VIAL ONE (11:45)
[2024-04-11] MEDS ORDERED: ARTIFICIAL TEARS-HYPROMELLOSE DROPS 15 ML BTL BOTH EYES PRN (11:56)
--- NOTE | 2024-04-11 14:19 | NM ---
EXAMINATION TYPE: NM hepatobiliary w CCK DATE OF EXAM: 04/11/2024 2:08 PM COMPARISON: CT abdomen pelvis most recent from 04/10/2024 CLINICAL INDICATION:Female, 58 years old with history of abdominal pain; TECHNIQUE: The patient was given 5.15 mCi of Technetium 99m-Mebrofenin as a radiotracer and multiple scintigraphic images were obtained of the abdomen. Gallbladder function was also assessed after the administration of 1.36 mcg of Kinevac and additional scintigraphic images were obtained of the abdome n. A region of interest was drawn over the gallbladder and a timing activity curve was generated. The gallbladder ejection fraction was calculated. Kinevac: 1.36 mcg FINDINGS: Normal uptake of radiotracer was identified within the liver with excretion into the hepatic and comm on biliary ducts within 240 seconds. There was normal progressive washout of the liver over the cours e of the study. Radiotracer uptake within the gallbladder at 10 minutes as well as small bowel activi ty was identified at 14 minutes. Maximum calculated gallbladder ejection fraction is: 81% at 30 minutes (Normal gallbladder ejection fraction is > 35%) IMPRESSION: 1. Normal hepatobiliary scan. 2. Normal ejection fraction.
[2024-04-11] MEDS: DICYCLOMINE 10 MG CAP PO SCH (17:29)
[2024-04-11] MEDS ORDERED: DICYCLOMINE 10 MG/ML 2 ML AMP IM SCH (18:00)
[2024-04-11] MEDS: MELATONIN 5 MG TABLET PO SCH (21:59)
[2024-04-12] MEDS: ACETAMINOPHEN TAB 325 MG TAB PO PRN (04:48)
[2024-04-12 07:30] VITALS: PULSE 74; RESP 15; TEMP 98.6
[2024-04-12 10:01] VITALS: BP 158/85
--- NOTE | 2024-04-12 10:24 | P.PN ---
Subjective Progress Note Date: 04/12/24 CHIEF COMPLAINT: Abdominal pain HISTORY OF PRESENT ILLNESS: Patient is tolerating a low-fat diet. Denies any nausea or vomiting. Her abdominal pain was better. She has been up and ambulating. Afebrile. HIDA scan had reported an EF of 81%. Patient seen and examined with Dr. Pichardo. PHYSICAL EXAM: VITAL SIGNS: Reviewed. GENERAL: Well-developed in no acute distress. ABDOMEN: Soft. Nondistended. Nontender. NEUROLOGIC: Alert and oriented. Cranial nerves II through XII grossly intact. ASSESSMENT: 1. Hyperkinetic gallbladder 2. Abdominal pain 3. Nausea vomiting 4. Cannabinoid use PLAN: -Patient can be discharged from surgical standpoint -Recommend outpatient laparoscopic cholecystectomy for hyperkinetic gallbladder -Recommend low-fat diet Physician Counter Checker note has been reviewed by physician. Signing provider agrees with the documented findings, assessment, and plan of care. Objective - Vital Signs Vital signs: Vital Signs Temp 98.6 F 04/12/24 07:00 Pulse 74 04/12/24 07:00 Resp 15 04/12/24 07:00 BP 158/85 04/12/24 10:01 Pulse Ox 95 04/12/24 07:00 FiO2 Intake & Output 04/11/24 04/12/24 04/12/24 18:59 06:59 18:59 Intake Total 720 118 Balance 720 118 Intake: Oral 720 118 Other: Voiding Method Toilet Toilet # Voids 2 2 - Labs CBC & Chem 7: 04/11/24 04:34 04/11/24 04:34
--- NOTE | 2024-04-12 11:23 | P.DS ---
Providers Date of admission: 04/10/24 13:15 Expected date of discharge: 04/12/24 Attending physician: Tavo Ahuja MD Consults: 04/10/24 13:14 Consult Physician Routine Consulting Provider: Olvin Pichardo Consult Reason/Comments: ab pain Do you want consulting provider notified?: Yes Primary care physician: Stated None Hospital Course: Discharge Diagnosis: Cyclic nausea and vomiting. Suspected cannabinoid hyperemesis syndrome Intractable abdominal pain Non-anion gap metabolic acidosis Hypertensive urgency upon arrival Hypothyroidism Hospital course: Patient is a 58-year-old female with a past medical history of hypertension, hypothyroidism, and nicotine dependence. She presented to the emergency department with a chief complaint of intractable abdominal pain, nausea, and vomiting. Patient reports pain to left flank accompanied by intractable nausea and vomiting. Patient reports this has been intermittent over the past 3 months but has now become persistent over the past 24 hours. She denies having any fevers, chills, headache, lightheadedness, dizziness, chest pain, palpitations, shortness of breath, hematemesis, melena, or hematochezia. She reports normal urinary function and normally fluctuates between diarrhea and constipation at baseline. She underwent evaluation in the emergency department. Vital signs upon arrival show blood pressure 212/114, heart rate 87, respiratory rate 16, temp 97.9 F, and SpO2 of 96% on room air. Labs were completed and reviewed. CBC was unremarkable with WBC count of 6.5, hemoglobin 12.6, and platelet count of 360,000. Coagulation profile normal findings. BMP showing non-anion gap metabolic acidosis with chloride of 112, bicarb of 19, and anion gap of 9. Renal function unremarkable with BUN of 11, creatinine 0.81, GFR of 82. Blood glucose 117. Liver profile unremarkable. Amylase 66 and lipase 158. Urinalysis negative for infection. CT abdomen and pelvis was completed negative for acute intra-abdominal process. Right lower extremity venous Doppler also completed secondary to patient's reports of right leg pain/cramping and was negative for DVT. Patient was admitted under our services for intractable abdominal pain, nausea, and vomiting. Consult was placed to general surgery for evaluation by ED physician. Patient was treated for cyclic vomiting had long discussion with patient that cyclic vomiting and abdominal pain is secondary to suspected cannabinoid hyperemesis syndrome. Patient was strongly encouraged to stop any and all marijuana use. She was evaluated by general surgery recommending outpatient laparoscopic cholecystectomy. HIDA scan showing normal hepatobiliary scan with normal ejection fraction of 81%. Abdominal pain/left flank pain improved. Nausea and vomiting resolved. Patient cleared from general surgery perspective and is medically stable for discharge at this time. Patient to follow-up outpatient with PCP in 1 to 2 days and with general surgery in 1 to 2 weeks to further discuss possibility of laparoscopic cholecystectomy. Physical exam: Vital signs reviewed and stable. General: Nontoxic, no acute distress noted at this time. Derm: Skin warm and dry, normal coloration for ethnicity. Head: Atraumatic, normocephalic and symmetric. Eyes: EOM's intact, no lid lag, and anicteric sclera Mouth: no lip lesions, mucus membranes moist Cardiovascular: regular rate and rhythm with normal S1S2, no murmur, positive posterior tibial pulses bilaterally, and cap refill < 2 seconds. Lungs: Respirations even, regular, and unlabored on room air. Lungs CTA bilaterally, no rhonchi, no rales, no wheezing, and no accessory muscle usage. Abdominal: soft, nontender to palpation, no guarding, no appreciable organomegaly. Reports left-sided flank/abdominal pain but did not appear to be worsened with palpation. No CVA tenderness reported. Ext: ROM intact. No gross muscle atrophy, no edema, no contractures Neuro: Speech clear, face symmetrical and CN II-XII grossly intact with no noted focal neuro deficits Psych: Alert and oriented to person, place, time, and situation. Appropriate and pleasant affect. A total of 33 minutes of time were spent preparing this complex discharge summary. Pt was discharged on 04/12/24 at 11:18 AM. Patient was seen independently by Nurse Practitioner. This document was prepared using [employer] dictation software. Please allow for errors in complaint investigator while rare they do occur. I reviewed the documentation as provided by the VICKIE above, who is the original author of this note. I agree with the documented assessment and plan, with the following changes: none Patient Condition at Discharge: Stable Plan - Discharge Summary New Discharge Prescriptions: New Dicyclomine [Bentyl] 10 mg PO QID PRN #30 cap PRN Reason: See Comments Pantoprazole [Protonix] 40 mg PO DAILY 30 Days #30 tab Continue Levothyroxine Sodium [Synthroid] 112 mcg PO DAILY lisinopriL [Zestril] 5 mg PO DAILY Discharge Medication List Levothyroxine Sodium [Synthroid] 112 mcg PO DAILY 04/10/24 [History] lisinopriL [Zestril] 5 mg PO DAILY 04/10/24 [History] Dicyclomine [Bentyl] 10 mg PO QID PRN #30 cap 04/12/24 [Rx] Pantoprazole [Protonix] 40 mg PO DAILY 30 Days #30 tab 04/12/24 [Rx] Follow up Appointment(s)/Referral(s): Cl Chauhan MD [REFERRING] - 1-2 Days (Please call and schedule first available appointment at residency clinic or with Dr. Dumont or Dr. Chauhan. Need post hospitalization follow-up and to establish care with PCP. Please call and schedule appointment prior to discharge. ) Olvin Pichardo MD [STAFF PHYSICIAN] - 1 Week Patient Instructions/Handouts: Cyclic Vomiting Syndrome (DC) Activity/Diet/Wound Care/Special Instructions: Activity: As tolerated. Take breaks as needed. Diet: Heart healthy and carb consistent diet. Avoid salts, or foods with hidden salts such as canned or boxed foods and frozen dinners. Extra salt makes your heart work harder and traps the fluid in your body for longer. Special Instructions: Take all of your medications as directed and remember to keep all of your doctor's appointments and follow-up as needed. As discussed, strongly recommend avoidance of any and all cannabis use as your symptoms are suspicious for cannabinoid hyperemesis syndrome. General surgery recommending outpatient follow-up in their office for scheduling of outpatient laparoscopic cholecystectomy. Thank you for allowing us to participate in your care, it was truly a pleasure having you for our patient!!! Discharge Disposition: HOME SELF-CARE
== END 2024-04-12 11:29 | disposition home or self-care (01) ==
LOC: EC 08:13 → 6NMEDSUR 13:15
PROVIDERS: ADMIT Student in an Organized Health Care Education/Training Program; ATTEND Student in an Organized Health Care Education/Training Program
DX: R11.15 Cyclical vomiting syndrome unrelated to migraine (principal); R10.9 Unspecified abdominal pain; I16.0 Hypertensive urgency; E87.20 Acidosis, unspecified; F12.90 Cannabis use, unspecified, uncomplicated; K82.8 Other specified diseases of gallbladder; E03.9 Hypothyroidism, unspecified; I10 Essential (primary) hypertension; D64.9 Anemia, unspecified; M79.604 Pain in right leg; K59.00 Constipation, unspecified; R19.7 Diarrhea, unspecified; F17.200 Nicotine dependence, unspecified, uncomplicated; Z79.890 Hormone replacement therapy; Z79.899 Other long term (current) drug therapy
CPT/HCPCS: 36415; 74177; 78227; 80053; 80306; 81003; 82150; 83690; 85025; 85610; 85730; 96361; 96372; 96374; 96375; 96376; 99285

== ENCOUNTER 2024-05-09 06:11 | Day surgery (SDC) | payer OTHER ==
[2024-05-05 10:30] VITALS: BMI 25.0
[2024-05-09] MEDS ORDERED: LIDOCAINE 1% (10MG/ML) FOR IV START INTRADERMA PRN (06:31)
[2024-05-09] MEDS: IV FLUID CONTINUATION 1,000 ML IV ONE (06:35)
[2024-05-09] MEDS: ONDANSETRON 4 MG/2 ML VIAL IVP ONE (07:00)
[2024-05-09] MEDS: DEXAMETHASONE SOD PHOSPHATE 4 MG/ML 1 ML VIAL IV ONE (07:00)
[2024-05-09] MEDS: SCOPOLAMINE 1 MG/72 HR PATCH TRANSDERM STA (07:01)
[2024-05-09] MEDS: FAMOTIDINE 20 MG/2 ML VIAL IV STA (07:01)
[2024-05-09] MEDS: LACTATED RINGERS 1,000 ML IV SCH (07:04)
[2024-05-09] MEDS ORDERED: MIDAZOLAM 2 MG/2 ML VIAL ONE (07:34)
[2024-05-09] MEDS ORDERED: ESMOLOL 100 MG/10 ML VIAL ONE (07:34)
[2024-05-09] MEDS ORDERED: HYDROmorphone (PF) 1 MG/ML ONE (07:34)
[2024-05-09] MEDS ORDERED: ROCURONIUM 10 MG/ML (5 ML VIAL) IV ONE (07:34)
[2024-05-09] MEDS ORDERED: LIDOCAINE 1% INJ 10MG/ML (20 ML MDV) ONE (07:34)
[2024-05-09] MEDS ORDERED: SUCCINYLCHOLINE CHLORIDE 200 MG/10 ML VIAL IV ONE (07:34)
[2024-05-09] MEDS ORDERED: METOPROLOL TARTRATE 5 MG/5 ML VIAL IVP ONE (07:34)
[2024-05-09] MEDS ORDERED: fentaNYL (PF) 50 MCG/ML 2 ML AMP ONE (07:34)
[2024-05-09] MEDS ORDERED: NEOSTIGMINE 1 MG/ML 10 ML VIAL ONE (07:34)
[2024-05-09] MEDS ORDERED: GLYCOPYRROLATE 0.2 MG/ML 2 ML VIAL ONE (07:34)
[2024-05-09] MEDS ORDERED: PROPOFOL 10 MG/ML 20 ML VIAL IV ONE (07:34)
[2024-05-09] MEDS ORDERED: KETOROLAC 15 MG/ML 1 ML VIAL ONE (07:34)
[2024-05-09] MEDS: LIDOCAINE 1%-EPI 1:100,000 20 ML VIAL SQ ONE (07:38)
--- NOTE | 2024-05-09 08:29 | P.OP ---
Date of Procedure: 05/09/24 Preoperative Diagnosis: Cholecystitis Postoperative Diagnosis: Cholecystitis Procedure(s) Performed: Laparoscopic cholecystectomy Anesthesia: LALITA Surgeon: Olvin Pichardo Estimated Blood Loss (ml): 5 Pathology: other (Gallbladder) Condition: stable Disposition: PACU Description of Procedure: The patient was placed on the operating table. The patient received a general endotracheal tube anesthesia. The patients abdomen was prepped and draped in the usual sterile fashion. Through an infraumbilical stab incision, the fascia of the anterior abdominal wall was grasped with a pair of Kochers and then the Veress needle was placed in the peritoneal cavity. Position of the Veress needle was confirmed with positive drop test. The abdomen was then insufflated. After adequate insufflation, the 10 mm trocar was placed in the peritoneal cavity. Following this the laparoscope was placed in the peritoneal cavity. The patient was placed in the head-up, right side up position and then a 5 mm trocar was placed in the right lateral and right subcostal position under direct visualization. A 8 mm trocar was placed in the epigastric position. The gallbladder was grasped in the fundus and infundibulum. Traction on the gallbladder was placed in the lateral and the cephalad positions. The triangle of Calot was visualized.. The cystic duct was bluntly dissected until the union of the cystic duct and common bile duct was seen. A critical view of safety was achieved. The cystic duct was then divided and sealed with the Harmonic scissors. A PDS Endoloop was then placed throughout the cystic duct stump. The cystic artery divided and sealed with the Harmonic scissors. The gallbladder was then removed from the liver bed using Harmonic scissors. The gallbladder was then extracted through the epigastric port site. Operative field was checked for any bleeding spots and Harmonic scissors was used to coagulate the liver bed. The abdomen was irrigated. The trocars were removed. The skin was closed using interrupted 3-0 Vicryl suture. Dermabond dressing were applied. The patient tolerated the procedure well.
[2024-05-09 08:37] VITALS: TEMP 96.8
[2024-05-09] MEDS: hydrALAZINE HCL 20 MG/ML 1 ML VIAL IVP STA (08:59)
[2024-05-09] MEDS: droPERidol 5 MG/2 ML VIAL IVP ONE (09:00)
[2024-05-09] MEDS: HYDROmorphone 0.5 MG/0.5 ML SYRINGE IVP PRN (09:09)
[2024-05-09] MEDS: MEPERIDINE 50 MG/ML SYRINGE IVP STA (09:47)
[2024-05-09 11:35] VITALS: BP 160/84; PULSE 97; RESP 18
== END 2024-05-09 12:00 | disposition home or self-care (01) ==
LOC: OR 06:11
PROVIDERS: ATTEND Surgery
DX: K81.0 Acute cholecystitis
CPT/HCPCS: 88304

== ENCOUNTER → 2024-06-02 | Outpatient (CLI) | payer OTHER ==
--- NOTE | 2024-06-02 10:36 | XR ---
EXAM TYPE: LUMBAR SPINE X RAY SERIES COMPARISON: NONE HISTORY: Pain TECHNIQUE: 4 views are submitted. FINDINGS: Alignment is anatomic. The pedicles are intact. The transverse processes are intact. There is gene ralized demineralization with grade 1 anterolisthesis L4-5 and L5-S1 with facet arthropathy at these levels. Mild degenerative disc disease L5-S1. Vascular calcifications. Metallic density in the right upper quadrant could be related to prior cholecystectomy correlate clinically. IMPRESSION: 1. Mild degenerative disc disease L5-S1. 2. Grade 1 anterolisthesis L4-5 and L5-S1 likely degenerative with evidence of facet arthropathy. Con burning supervisor follow-up MRI. [facility], , 06/02/2024 10:33 AM
== END ==
LOC: RADXRMAIN 10:10
PROVIDERS: ATTEND Internal Medicine
CPT/HCPCS: 72110